=== PATIENT | male | born 1995 | race Caucasian/White ===

== ENCOUNTER 2016-10-12 10:49 | Emergency (ER) | payer SELFPAY ==
[2016-10-12 12:18] VITALS: BP 124/55
--- NOTE | 2016-10-12 13:02 | UC ---
General HPI - HPI Summary HPI Summary: 21 year old presents complaining of nasal and sinus congestion, post-nasal drip , cough located in the upper chest with yellow sputum production, mid-back pain , fever-like symptoms, and feeling nauseated. Symptoms began Tuesday with nasal congestion. Mid back pain intensified today, described as a constant ache , patient reports feeling fatigued. Patient has been exposed to Influenza, sister diagnosed Tuesday. - History of Current Complaint Chief Complaint: UCGeneralIllness Stated Complaint: FLU LIKE SYMPTOMS Time Seen by Provider: 10/12/16 12:19 Hx Obtained From: Patient, Family/Warper Fixer Onset/Duration: Gradual Onset Associated Signs & Symptoms: Positive: Back Pain, Cough, Dizziness, Fever, Headache, Nausea, SOB, Wheezing - In the morning, Weakness - Allergy/Home Medications Allergies/Adverse Reactions: Allergies Allergy/AdvReac Type Severity Reaction Status Date / Time No Known Allergies Allergy Verified 01/21/15 19:08 Home Medications: Home Medications Equate Cough And Cold 10/12/16 [History] [id number] W/ APAP [Vicks Dayquil Severe ... [id number] mg/15Ml] [History] PMH/Surg Hx/FS Hx/Imm Hx Previously Healthy: Yes Endocrine History Of: Denies: Diabetes, Thyroid Disease Cardiovascular History Of: Denies: Cardiac Disorders, Hypertension Respiratory History Of: Reports: Asthma - Childhood Denies: COPD GI/ History Of: Denies: Ulcer Neurological History Of: Denies: Seizures, Migraine Psychological History Of: Denies: Anxiety, Depression, Bipolar Disorder - Surgical History Surgical History: None - Family History Known Family History: Positive: Unknown - Social History Occupation: Employed Full-time - [employer] Alcohol Use: Rare Substance Use Type: None Smoking Status (MU): Heavy Every Day Tobacco Smoker Type: Cigarettes Amount Used/How Often: 1/2 ppd Length of Time of Smoking/Using Tobacco: age 14 Have You Smoked in the Last Year: Yes Review of Systems Constitutional: Fever, Chills, Fatigue Skin: Negative Eyes: Negative ENT: Nasal Discharge, Other - Sinus/nasal congestion post-nasal drip Respiratory: Shortness Of Breath - With exertion, Cough - productive, yellow sputum production. Cardiovascular: Negative Gastrointestinal: Vomiting - Twice since Tuesday, Other - feeling nauseated Genitourinary: Negative Motor: Weakness Neurovascular: Negative Musculoskeletal: Negative Neurological: Headache, Weakness Psychological: Negative All Other Systems Reviewed And Are Negative: Yes Physical Exam Triage Information Reviewed: Yes Appearance: Ill-Appearing Vital Signs: Initial Vital Signs Temp 99.9 F 10/12/16 12:12 Pulse 116 10/12/16 12:12 Resp 18 10/12/16 12:12 BP 124/55 10/12/16 12:12 Pulse Ox 100 10/12/16 12:12 Vital Signs Reviewed: Yes Eye Exam: Normal Eyes: Positive: Conjunctiva Clear ENT: Positive: Hearing grossly normal, Pharynx normal, Nasal congestion, Nasal drainage, TMs normal. Negative: Pharyngeal erythema, Tonsillar swelling, Tonsillar exudate Dental Exam: Normal Neck: Positive: Supple, Nontender, No Lymphadenopathy. Negative: Nuchal Rigidity Respiratory: Positive: Chest non-tender, Lungs clear, Normal breath sounds, No respiratory distress, No accessory muscle use, Decreased breath sounds - Bilateral posterior lower lobes Cardiovascular: Positive: RRR, No Murmur, Pulses Normal, Tachycardia Abdomen Description: Positive: Nontender, No Organomegaly, Soft. Negative: CVA Tenderness (R), CVA Tenderness (L), Distended, Guarding, Splenomegaly Bowel Sounds: Positive: Present Musculoskeletal: Positive: Strength Intact, ROM Intact, No Edema Neurological: Positive: Alert, Muscle Tone Normal, Fatigued Psychological Exam: Normal Skin Exam: Normal Course/Dx - Differential Dx - Multi-Symptom Provider Diagnoses: Viral syndrome. Influenza exposure Discharge - Discharge Plan Condition: Stable Disposition: HOME Prescriptions: Albuterol HFA INHALER* [Ventolin HFA Inhaler*] 1 - 2 puff INH Q6H PRN #1 mdi PRN Reason: wheeze Patient Education Materials: Influenza (ED) Forms: *Work Release Referrals: BRYANNA Herrera [Primary Care Provider] - If Needed Additional Instructions: As discussed, follow up for new or worsening symptoms, if symptoms fail to improve in the next week.
== END 2016-10-12 13:13 | disposition home or self-care (01) ==
LOC: UCCORT 10:49
DX: B34.9 Viral infection, unspecified (principal); F17.210 Nicotine dependence, cigarettes, uncomplicated
CPT/HCPCS: 99212; G0463

== ENCOUNTER 2018-02-14 07:39 | Emergency (ER) | payer SELFPAY ==
[2018-02-14 07:53] VITALS: BP 139/67
--- NOTE | 2018-02-14 08:09 | UC ---
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 - History of Current Complaint Chief Complaint: UCSkin Time Seen by Provider: 02/14/18 07:50 Stated Complaint: SKIN COMPLAINT Hx Obtained From: Patient Onset/Duration: Gradual Onset, Lasting Days - 7, Still Present Timing: Constant Onset Severity: Moderate Current Severity: Moderate Pain Intensity: 5 Location: Discrete - bilateral hands and arms Character: Swelling, Pruritus, Pain, Redness, Raised, Painful Aggravating Factor(s): Touch Alleviating Factor(s): Nothing Associated Signs & Symptoms: Negative: Nausea, Vomiting, Numbness, Thirst, Diaphoresis, Weakness, Fever, Chills, Drainage, Bruising, Red Streaks - Allergy/Home Medications Allergies/Adverse Reactions: Allergies Allergy/AdvReac Type Severity Reaction Status Date / Time No Known Allergies Allergy Verified 01/21/15 19:08 Home Medications: Home Medications Ibuprofen 400 mg PO Q8H 02/14/18 [History Confirmed 02/14/18] Review of Systems Constitutional: Negative Skin: Rash Eyes: Negative ENT: Negative Respiratory: Negative Cardiovascular: Negative Gastrointestinal: Negative Is Patient Immunocompromised?: No All Other Systems Reviewed And Are Negative: Yes PMH/Surg Hx/FS Hx/Imm Hx Previously Healthy: Yes - Surgical History Surgical History: None - Family History Known Family History: Positive: Unknown Negative: Diabetes - Social History Alcohol Use: Rare Substance Use Type: None Smoking Status (MU): Heavy Every Day Tobacco Smoker Type: Cigarettes Amount Used/How Often: 1/2 ppd Length of Time of Smoking/Using Tobacco: age 14 Have You Smoked in the Last Year: Yes Physical Exam Triage Information Reviewed: Yes Appearance: Well-Appearing, No Pain Distress, Well-Nourished Vital Signs: Initial Vital Signs Temp 98.0 F 02/14/18 07:46 Pulse 86 02/14/18 07:46 Resp 15 02/14/18 07:46 BP 139/67 02/14/18 07:46 Pulse Ox 100 02/14/18 07:46 Vital Signs Reviewed: Yes Eye Exam: Normal Eyes: Positive: Conjunctiva Clear ENT: Positive: Normal ENT inspection, Hearing grossly normal, Pharynx normal, Pharyngeal erythema Neck: Positive: Supple, Nontender, No Lymphadenopathy Respiratory: Positive: Chest non-tender, Lungs clear, Normal breath sounds, No respiratory distress Cardiovascular: Positive: RRR, No Murmur, Pulses Normal Skin: Positive: rashes - small blister on right hand , multiple ulcerations both hand and forearm , + crusty , erythema , tender Course/Dx - Diagnoses Provider Diagnoses: impetigo. contact dermatitis Discharge - Sign-Out/Discharge Documenting (check all that apply): Discharge/Admit/Transfer - Discharge Plan Condition: Stable Disposition: HOME Prescriptions: Mupirocin 2% CREAM* [Bactroban 2% CREAM*] 1 applic TOPICAL BID #1 tube Patient Education Materials: Contact Dermatitis (ED), Impetigo (ED) Referrals: No Primary Care Phys,NOPCP [Primary Care Provider] - 2 Weeks - Billing Disposition and Condition Condition: STABLE Disposition: Home
== END 2018-02-14 08:10 | disposition home or self-care (01) ==
LOC: UCCORT 07:39
DX: L01.00 Impetigo, unspecified (principal); L25.3 Unspecified contact dermatitis due to other chemical products; F17.210 Nicotine dependence, cigarettes, uncomplicated
CPT/HCPCS: 99212; G0463